=== PATIENT | male | born 1960 | race Caucasian/White ===

== ENCOUNTER → 2016-05-29 | Outpatient (CLI) | payer OTHER ==
--- NOTE | 2016-05-29 11:35 | KCIC ---
PROCEDURE Right great toe, two views. HISTORY Pain. FINDINGS Frontal and lateral views of the right great toe are obtained. There is mild degenerative spurring and subchondral cyst formation involving the 1st metatarsophalangeal joint. There is slight lucency involving the lateral aspect of the tuft of the 1st distal phalanx which is likely due to an osseous ridge rather than nondisplaced fracture. No soft tissue lesion is seen. IMPRESSION 1. 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 2. No acute osseous finding. Electronically signed by: Kavya Nichols (May 29, 2016 11:33:45)
== END | disposition home or self-care (01) ==
LOC: KCIC 11:07
PROVIDERS: ATTEND Nurse Practitioner Family
DX: M79.674 Pain in right toe(s) (principal); M25.9 Joint disorder, unspecified
CPT/HCPCS: 73660

== ENCOUNTER → 2017-09-24 | Outpatient (CLI) | payer OTHER | END | disposition home or self-care (01) | LOC: NM 07:44 | DX: R07.9 Chest pain, unspecified (principal); I10 Essential (primary) hypertension; E11.9 Type 2 diabetes mellitus without complications; I25.10 Atherosclerotic heart disease of native coronary artery without angina pectoris | CPT/HCPCS: 78452; 93017; 96374; 96375; 96376; A9500 ==